=== PATIENT | male | born 1980 | race Caucasian/White ===

== ENCOUNTER 2016-04-10 11:23 | Emergency (ER) | payer OTHER ==
[2016-04-10 12:22] VITALS: BP 121/68
--- NOTE | 2016-04-10 13:30 | UC ---
Throat Pain/Nasal Jefry HPI - HPI Summary HPI Summary: c/o sore throat since last night. His son was DX with strep last weekend. His sore throat is mild. may have 1 white spot. no white spots, no gland swelling. he does have nasal congestion and mild cough. no wheezing. - History of Current Complaint Chief Complaint: UCRespiratory Stated Complaint: SORE THROAT Time Seen by Provider: 04/10/16 13:26 - Allergies/Home Medications Allergies/Adverse Reactions: Allergies Allergy/AdvReac Type Severity Reaction Status Date / Time No Known Allergies Allergy Verified 04/10/16 12:19 PMH/Surg Hx/FS Hx/Imm Hx Previously Healthy: Yes Cardiovascular History Of: Reports: Hypertension - Surgical History Surgical History: None - Family History Known Family History: Positive: Hypertension Negative: Cardiac Disease, Respiratory Disease - Social History Alcohol Use: None Substance Use Type: None Smoking Status (MU): Former Smoker When Did the Patient Quit Smoking/Using Tobacco: 7 years ago Review of Systems Constitutional: Negative Skin: Negative Eyes: Negative ENT: Sore Throat, Ear Ache, Nasal Discharge Respiratory: Cough Cardiovascular: Negative Gastrointestinal: Negative Genitourinary: Negative Motor: Negative Neurovascular: Negative Musculoskeletal: Negative Neurological: Negative Psychological: Negative All Other Systems Reviewed And Are Negative: Yes Physical Exam Triage Information Reviewed: Yes Appearance: Well-Appearing, No Pain Distress, Well-Nourished Vital Signs: Initial Vital Signs Temp 97.6 F 04/10/16 12:16 Pulse 73 04/10/16 12:16 Resp 14 04/10/16 12:16 BP 121/68 04/10/16 12:16 Pulse Ox 98 04/10/16 12:16 Vital Signs Reviewed: Yes Eye Exam: Normal ENT Exam: Normal ENT: Positive: Pharyngeal erythema - mild with + PND, TMs normal. Negative: Tonsillar swelling, Tonsillar exudate Dental Exam: Normal Neck exam: Normal Neck: Positive: Supple, Nontender, No Lymphadenopathy Respiratory Exam: Normal Respiratory: Positive: Lungs clear, Normal breath sounds, No respiratory distress, No accessory muscle use Cardiovascular Exam: Normal Cardiovascular: Positive: RRR, No Murmur, Pulses Normal, Brisk Capillary Refill Abdominal Exam: Normal Abdomen Description: Positive: Nontender, Soft Musculoskeletal Exam: Normal Neurological Exam: Normal Psychological Exam: Normal Skin Exam: Normal Throat Pain/Nasal Course/Dx - Course Course Of Treatment: strep cx neg - Differential Dx/Diagnosis Differential Diagnosis/HQI/PQRI: Peritonsillar Abscess, Pharyngitis, Sinusitis, Tonsillitis, URI Provider Diagnoses: viral URI Discharge - Discharge Plan Condition: Stable Disposition: HOME Patient Education Materials: Upper Respiratory Infection (ED) Referrals: Alec Guidry MD [Primary Care Provider] - Additional Instructions: strep test was negative. fluids, rest, tylenol cold and sinus for symptom relief.
--- NOTE | 2016-04-11 20:28 | UC ---
Progress - Progress Note Progress Note: Patient's son (Golden) seen today and found to be positive for strep throat. He has another son at home positive for strep also. This patient, the father was seen before and not found to have strep, but he has gotten more ill recently. He was offered penicillin for strep and he wanted it.
== END 2016-04-10 13:50 | disposition home or self-care (01) ==
LOC: UCCORT 11:23
DX: J06.9 Acute upper respiratory infection, unspecified (principal); Z87.891 Personal history of nicotine dependence
CPT/HCPCS: 87651; 99211; G0463

== ENCOUNTER 2019-03-28 21:17 | Emergency (ER) | payer OTHER ==
[2019-03-28 21:35] VITALS: BP 135/80
[2019-03-28] MEDS ORDERED: Ibuprofen TAB* 400 MG PO ONE (21:38)
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
--- NOTE | 2019-03-29 09:13 | UC ---
- Progress Note Progress Note: Patient's official xray read does not show any fracture. Recommend weight bearing as tolerated. Continue with knee immobilizer, crutches as needed. Patient should still follow up with orthopedics. - EKG/XRAY/CT XRAY: knee Xray Comments: left knee: no acute osseous injury Course/Dx - Diagnoses Provider Diagnoses: Closed fracture of lateral condyle of femur, Nondisplaced fracture Discharge ED - Sign-Out/Discharge Documenting (check all that apply): Post-Discharge Follow Up All imaging exams completed and their final reports reviewed: Yes - Discharge Plan Condition: Good Disposition: HOME Prescriptions: Ibuprofen TAB* [Motrin TAB* 600 MG] 600 mg PO Q8H PRN #20 tab PRN Reason: Pain - Moderate Patient Education Materials: Knee Pain (ED) Referrals: Camilo Jones MD [Medical Doctor] - 1 Day Alec Guidry MD [Primary Care Provider] - 2 Days Additional Instructions: Your final xray reading is pending. You may have a subtle broken bone. Use the crutches and knee immobilizer and please follow up with orthopedics. - Billing Disposition and Condition Condition: GOOD Disposition: Home
== END 2019-03-28 22:25 | disposition home or self-care (01) ==
LOC: UCCORT 21:17
DX: S72.425A Nondisplaced fracture of lateral condyle of left femur, initial encounter for closed fracture (principal); I10 Essential (primary) hypertension; Z87.891 Personal history of nicotine dependence; W22.8XXA Striking against or struck by other objects, initial encounter; Y92.9 Unspecified place or not applicable
CPT/HCPCS: 99213; A9270-GY; G0463